=== PATIENT | female | born 2005 | race Caucasian/White ===

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

== ENCOUNTER 2024-09-10 06:21 | Day surgery (SDC) | payer BC, SELFPAY | END 2024-09-10 13:40 | disposition home or self-care (01) | LOC: GI 06:21 | PROVIDERS: ATTENDING PHYSICIAN Student in an Organized Health Care Education/Training Program | DX: R10.13 Epigastric pain (principal); R11.0 Nausea; R63.4 Abnormal weight loss; K59.00 Constipation, unspecified; Z53.8 Procedure and treatment not carried out for other reasons | CPT/HCPCS: 43235; G0378 ==

== ENCOUNTER 2024-10-31 06:10 | Day surgery (SDC) | payer BC, OTHER, SELFPAY ==
[2024-10-31 08:18] VITALS: BMI 39.3
[2024-10-31 08:20] VITALS: BMI 39.3
[2024-10-31 08:21] VITALS: BP 134/80
[2024-10-31 12:00] VITALS: BP 124/63
[2024-10-31 12:15] VITALS: BP 125/63
[2024-10-31 12:21] VITALS: BP 110/70
== END 2024-10-31 12:35 | disposition home or self-care (01) ==
LOC: GI 06:10
PROVIDERS: ATTENDING PHYSICIAN Student in an Organized Health Care Education/Training Program
DX: R10.13 Epigastric pain (principal); R13.10 Dysphagia, unspecified; K31.7 Polyp of stomach and duodenum; R11.0 Nausea
CPT/HCPCS: 43239; 88305; 88342

== ENCOUNTER → 2024-11-10 07:47 | Outpatient (REF) | payer BC, OTHER, SELFPAY | LOC: RAD 07:47 | PROVIDERS: ATTENDING PHYSICIAN Student in an Organized Health Care Education/Training Program; FAMILY PHYSICIAN Family Medicine | DX: R68.81 Early satiety (principal); R11.0 Nausea | CPT/HCPCS: 78264; A9541 ==